=== PATIENT | male | born 1975 | race Caucasian/White ===

== ENCOUNTER 2016-11-01 22:22 | Emergency (ER) | payer OTHER ==
--- NOTE | 2016-11-01 22:30 | PDOC ---
[id number] INJURY TO LEFT GREAT TOE Time Seen by Provider: 11/01/16 22:30 History Source: Patient Exam Limitations: No Limitations - History of Present Illness Initial Comments: 41 yo M no PMH injured his R great toe 2 weeks ago after dropping something on his foot. He did not seek evaluation at the time. However, having bruising under the nail, so he cut his nail off 3 days ago. Now he notes swelling, redness, and pus from the toe. Past History - Past Medical History Allergies/Adverse Reactions: Allergies Allergy/AdvReac Type Severity Reaction Status Date / Time No Known Allergies Allergy Verified 11/01/16 22:24 Home Medications: Ambulatory Orders Alprazolam [Xanax -] 1.5 mg PO PRN 11/01/16 Cephalexin Monohydrate [Keflex -] 500 mg PO Q6H #28 capsule 11/01/16 Sertraline HCl [Zoloft] 200 mg PO DAILY 11/01/16 Sulfamethoxazole/Trimethoprim [Bactrim Ds -] 1 tab PO BID #14 tablet 11/01/16 Review of Systems - Review of Systems Able to Perform ROS?: Yes Comments:: GENERAL/CONSTITUTIONAL: No fever or chills. No weakness. HEAD, EYES, EARS, NOSE AND THROAT: No change in vision. No ear pain or discharge. No sore throat. MUSCULOSKELETAL: +R great toe pain and swelling. No neck or back pain. SKIN: No rash NEUROLOGIC: No headache, vertigo, loss of consciousness, or change in strength/ sensation. *Physical Exam - Physical Exam Comments: GENERAL: Awake, alert, and fully oriented, in no acute distress HEAD: No signs of trauma EXTREMITIES: R great toe with erythema, small area of drainage medially along the nail. No induration, no fluctuance. Remainder of extremities with normal range of motion, no edema. No clubbing or cyanosis. No cords, erythema, or tenderness NEUROLOGICAL: Cranial nerves II through XII grossly intact. Normal speech, normal gait SKIN: Warm, Dry, normal turgor, no rashes or lesions noted. Medical Decision Making - Medical Decision Making Toe with an area that has small drainage (already open). No fluctuant areas to warrant I&D. Recommended PO abx, as the toe is swollen and cellulitic. Continue with epsom salt soaks. Wear cotton socks to prevent it from staying moist. F/u with podiatry. *DC/Admit/Observation/Transfer Diagnosis at time of Disposition: Cellulitis Qualifiers: Site of cellulitis: extremity Site of cellulitis of extremity: toe Laterality: left Qualified Code(s): L03.032 - Cellulitis of left toe - Discharge Dispostion Disposition: HOME Condition at time of disposition: Stable Admit: No - Prescriptions Prescriptions: Sulfamethoxazole/Trimethoprim [Bactrim Ds -] 1 tab PO BID #14 tablet Cephalexin Monohydrate [Keflex -] 500 mg PO Q6H #28 capsule - Patient Instructions Printed Discharge Instructions: DI for Cellulitis -- Adult
[2016-11-01 22:35] VITALS: BP 132/82; PULSE 66; TEMP 98.7; BMI 31.3
[2016-11-01] MEDS ORDERED: SULFAMETHOXAZOLE/TRIMETHOPRIM 800MG/160MG D.S. TABLET PO ONE (22:56)
[2016-11-01] MEDS ORDERED: CEPHALEXIN MONOHYDRATE 500 MG CAPSULE (UD) PO ONE (22:56)
[2016-11-01] MEDS ORDERED: SULFAMETHOXAZOLE/TRIMETHOPRIM 800MG/160MG D.S. TABLET ONE (23:07)
[2016-11-01] MEDS ORDERED: CEPHALEXIN MONOHYDRATE 500 MG CAPSULE (UD) ONE (23:07)
== END 2016-11-01 23:11 | disposition home or self-care (01) ==
LOC: FER 22:22
DX: L03.032 Cellulitis of left toe (principal)
CPT/HCPCS: 99281-25